=== PATIENT | male | born 1945 | race Caucasian/White ===

== ENCOUNTER 2018-08-14 09:49 | Observation (INO) ==
[2018-08-14 10:39] LABS: Basophils # 0.1 K/mcL (0.0-0.2); Basophils % 0.8 %; Eosinophils # 0.2 K/mcL (0.0-0.6); Eosinophils % 2.9 %; Hemoglobin 13.6 g/dL (12.9-16.9); Immature Granulocytes % 0.4 % (0-4); Lymphocytes # 1.2 K/mcL (0.6-4.6); Lymphocytes % 15.6 %; Mean Corpuscular HGB Conc 33.2 g/dL (31.6-35.5); Mean Corpuscular Volume 90.3 fL (83.0-100.0); Mean Platelet Volume 8.9 fL (9.4-12.4); Monocytes # 0.5 K/mcL (0.0-1.3); Monocytes % 6.3 %; Neutrophils # 5.7 K/mcL (1.6-8.9); Platelet Count 197 K/mcL (140-400); Red Blood Count 4.54 M/mcL (4.19-5.50); Red Cell Distribution Width 14.1 % (11.5-14.5)
--- NOTE | 2018-08-14 10:47 | Emergency Department Note ---
Disposition Clinical Impression: Acute chest pain Disposition: Admitted As Inpatient Condition: Fair Time of Disposition: 11:00 General Adult HPI - General Chief complaint: ED Extremity Problem,Nontraumatic Stated complaint: CP/DVT? Time Seen by Provider: 08/14/18 10:01 Source: patient Limitations: no limitations Nursing Notes Reviewed: Yes Vital Signs Reviewed: Yes - History of Present Illness HPI Narrative: 73-year-old male presents emergency Department with concerns of left lower extremity swelling and pain. Patient states symptoms have been present over the past 24-48 hours. He recalls reports having chest pain that is a dull ache in the left lower chest that does not radiate. He does not have associated diaphoresis or shortness of breath or palpitations. No history of cardiac disease in the past. 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 He states his Coumadin levels are very stable and has not had much difficulty controlling his INR. Patient denies recent trauma. No fevers, chills, nausea, vomiting, diarrhea, rash. Pain Scale: 2 - Related Data Home Medications Medication Instructions Recorded Confirmed Atorvastatin Calcium [Lipitor] 40 mg PO DAILY 12/17/15 08/14/18 Enalapril Maleate [Vasotec] 10 mg PO HS 12/17/15 08/14/18 Enalapril Maleate [Vasotec] 15 mg PO QAM 12/17/15 08/14/18 Ergocalciferol (VITAMIN D2) 50,000 unit PO 2XW 12/17/15 08/14/18 [Vitamin D2 (50,000 UNIT)] Fenofibrate Nanocrystallized 145 mg PO DAILY 12/17/15 08/14/18 [Tricor] Gabapentin [Neurontin] 600 mg PO HS 12/17/15 08/14/18 Lactobacillus Acidophilus 1 mg PO DAILY 12/17/15 08/14/18 [Acidophilus Probiotic] [place]-3/Dha/Epa/Fish Oil [Fish Oil 1,000 mg PO DAILY 12/17/15 08/14/18 Dr 500 mg Softgel] Pramoxine [Proctofoam] 1 appl RC QID 12/17/15 12/17/15 Psyllium Husk [Fiber] 1 tab PO DAILY 12/17/15 08/14/18 Sulfamethoxazole/Trimeth DS 1 each PO BID 12/17/15 12/17/15 [Bactrim Ds] Tizanidine HCl 4 mg PO Q8H PRN 12/17/15 08/14/18 Warfarin [Coumadin] 2.5 mg PO MOWEFR 12/17/15 08/14/18 Warfarin [Coumadin] 5 mg PO SUTUTHSA 12/17/15 08/14/18 amLODIPine [Norvasc] 5 mg PO DAILY 12/17/15 08/14/18 Carvedilol [Coreg] 25 mg PO BIDWM 08/14/18 08/14/18 OxyCODONE Immed Rel [Roxicodone 5 5 mg PO BID PRN 08/14/18 08/14/18 MG] hydroCHLOROthiazide 25 mg PO DAILY 08/14/18 08/14/18 [Hydrochlorothiazide] Allergies Allergy/AdvReac Type Severity Reaction Status Date / Time oxytetracycline Allergy See Verified 12/17/15 16:20 [From Terramycin] Comments Penicillins [PCN] Allergy See Verified 12/17/15 16:20 Comments tetracycline [Tetracycline] Allergy See Verified 12/17/15 16:20 Comments All systems ED: reviewed and negative except as stated. Review of Systems: As Per HPI Past Medical History - Past Medical History Attestation: Yes The following information was validated with the patient. Source: patient Medical history: Reports: arthritis, DVT, hyperlipidemia, hypertension, pulmonary embolus Surgical history: Reports: no surgical history Psychiatric history: Reports: no psych history - Social History Smoking Status: Never smoker Smokeless Tobacco Status: No Alcohol use: Reports: none Drug use: Reports: none Physical Exam General: Alert and in no acute distress Skin: Warm, dry, intact Head: Normocephalic and atraumatic Neck: Supple, trachea midline and no tenderness Cardiovascular: RRR, no murmur, normal perfusion Respiratory: CTAB, no wheezing, cough, or respiratory distress Musculoskeletal: Normal strength. Tenderness to palpation of the left posterior calf, +3 pitting edema in the bilateral lower extremities. GI: Soft, nontender, nondistended. Bowel sounds present Neuro: A&O to person, place, time and situation. No focal deficits noted on exam Psychiatric: cooperative and appropriate mood and affect. - General Limitations: no limitations General appearance: alert Course Vital Signs Temperature 97.9 F 08/14/18 09:50 Pulse Rate 64 08/14/18 09:50 Respiratory Rate 18 08/14/18 09:50 Blood Pressure 194/103 08/14/18 09:50 O2 Sat by Pulse Oximetry 96 08/14/18 09:50 Temperature 98.5 F 08/15/18 08:36 Pulse Rate 62 08/15/18 08:36 Respiratory Rate 16 08/15/18 08:36 Blood Pressure 172/64 08/15/18 08:36 O2 Sat by Pulse Oximetry 96 08/15/18 08:36 Oxygen Delivery Oxygen Delivery Room Air Medical Decision Making - MDM Narrative Medical decision making narrative: DT was negative in the left lower extremity however patient has significant left lower chest pain. He has multiple risk factors and will be admitted to the hospitalist for further care and evaluation. - Medical Records Medical records reviewed: Yes I reviewed the patient's medical records. - Lab Data Lab results reviewed: Yes I reviewed the patient's lab results. Result diagrams: 08/15/18 03:54 08/15/18 03:54 Lab Results 08/14/18 08/14/18 Range/Units 10:28 10:28 WBC 7.7 (4.3-11.1) K/mcL RBC 4.54 (4.19-5.50) M/mcL Hgb 13.6 (12.9-16.9) g/dL Hct 41.0 (37.5-50.1) % MCV 90.3 (83.0-100.0) fL MCH 30.0 (28.0-33.3) pg MCHC 33.2 (31.6-35.5) g/dL RDW 14.1 (11.5-14.5) % Plt Count 197 (140-400) K/mcL MPV 8.9 L (9.4-12.4) fL Immature Gran % 0.4 (0-4) % Seg Neutrophils % 74.0 % Lymphocytes % 15.6 % Monocytes % 6.3 % Eosinophils % 2.9 % Basophils % 0.8 % Neutrophils # 5.7 (1.6-8.9) K/mcL Lymphocytes # 1.2 (0.6-4.6) K/mcL Monocytes # 0.5 (0.0-1.3) K/mcL Eosinophils # 0.2 (0.0-0.6) K/mcL Basophils # 0.1 (0.0-0.2) K/mcL Sodium 139 (136-145) mEq/L Potassium 4.1 (3.5-5.1) mEq/L Chloride 107 (98-107) mEq/L Carbon Dioxide 24 (23-29) mEq/L BUN 18 (8-23) mg/dL Creatinine 1.17 (0.70-1.30) mg/dL Est GFR ( Amer) > 60 (> 60) Est GFR (Non-Af Amer) > 60 (> 60) BUN/Creatinine Ratio 15 (6-26) Glucose 99 (70-105) mg/dL Calculated Osmolality 290 (280-300) Calcium 9.5 (8.6-10.3) mg/dL Troponin I < 0.03 (< 0.04) ng/mL - Radiology Data Radiology results reviewed: Yes I reviewed the patient's radiology results. - EKG Data EKG #1 EKG attestation: Yes I reviewed and interpreted this EKG. EKG results narrative: Normal sinus rhythm with a rate of 75 with PACs and mild ST depression of lead V4, V5. No evidence of STEMI. QTC of 396, QRS of 99.
[2018-08-14] MEDS ORDERED: Nitroglycerin 0.4 MG TAB.SUBL SL PRN (10:52)
[2018-08-14] MEDS ORDERED: Aspirin 81 MG TAB.CHEW PO ONE (10:52)
[2018-08-14 11:01] LABS: BUN/Creatinine Ratio 15 (6-26); Blood Urea Nitrogen 18 mg/dL (8-23); Calcium 9.5 mg/dL (8.6-10.3); Carbon Dioxide 24 mEq/L (23-29); Chloride 107 mEq/L (98-107); Glucose 99 mg/dL (70-105); Osmolality,Calculated 290 (280-300); Potassium 4.1 mEq/L (3.5-5.1); Sodium 139 mEq/L (136-145); Troponin I < 0.03 ng/mL (< 0.04); eGFR For Non-African Americans > 60 (> 60)
[2018-08-14] MEDS ORDERED: Isovue-370 500 ML BOTTLE IVP ONE (11:13)
[2018-08-14] MEDS ORDERED: *HR* HYDROcodone/Acet 5/325 mg TABLET PO PRN (15:11)
[2018-08-14] MEDS ORDERED: Ondansetron ODT 4 MG TAB.RAPDIS SL PRN (15:11)
[2018-08-14] MEDS ORDERED: Acetaminophen 325 MG TABLET PO PRN (15:11)
[2018-08-14] MEDS ORDERED: Naloxone 0.4 MG/ML INJ IVP PRN (15:11)
--- NOTE | 2018-08-14 15:54 | Internal Med History&Physical ---
Date of Encounter: 08/14/18 Time of Encounter: 15:57 Internal Medicine - H&P: HPI Chief complaint: CP Admitted From: Emergency Dept Plans for Post Hospital Care: Home History of present illness: Mr. Glass is a 73 year old male past medical hx of DVT and hx of PE on coumadin HLD HTN artjhritis Has chronic lower extremity swelling noticed he has left lower extremity swelling and pain been going on for approximately 5 days. This a.m. at approximate 4 AM he got to the bathroom and did experience some dull left lower nonradiating chest pain denied any associated symptoms of shortness of breath nausea diaphoresis or palpitations. There were no aggravating or relieving factors. Pain continued until approximately 10 AM which resolved on its own. He originally presented to urgent care with concerns of left lower e xtremity swelling-concern for DVT since he does have a past history advised patient go to the ER for evaluation. In the ER patient underwent venous duplex which was negative for any DVT CTA chest was negative for PE chest x-ray no acute process EKG with PACs and some mild ST depression initial troponin was negative. He has been admitted for further workup and evaluation. Currently patient denies any chest pain disc voices concerns about his lower leg swelling. Discussed implant the patient verbalized understanding Past Med Surg Social Fam HX - Past Medical History Medical history: arthritis, DVT, hyperlipidemia, hypertension, pulmonary embolus Psychiatric history: no psych history - Past Surgical History Surgical History: no surgical history - Social History Smoking Status: Never smoker Smokeless Tobacco Status: No Alcohol use: none Drug use: none - Family History Mother Family Member Ethnicity: Non- Living Status: Internal Medicine - H&P: Meds Atorvastatin Calcium [Lipitor] 40 mg PO DAILY 12/17/15 [History] Enalapril Maleate [Vasotec] 10 mg PO HS 12/17/15 [History] Enalapril Maleate [Vasotec] 15 mg PO QAM 12/17/15 [History] Ergocalciferol (VITAMIN D2) [Vitamin D2 (50,000 UNIT)] 50,000 unit PO 2XW 12/17/15 [History] Fenofibrate Nanocrystallized [Tricor] 145 mg PO DAILY 12/17/15 [History] Gabapentin [Neurontin] 600 mg PO HS 12/17/15 [History] Lactobacillus Acidophilus [Acidophilus Probiotic] 1 mg PO DAILY 12/17/15 [History] [place]-3/Dha/Epa/Fish Oil [Fish Oil Dr 500 mg Softgel] 1,000 mg PO DAILY 12/17/15 [History] Pramoxine [Proctofoam] 1 appl RC QID 12/17/15 [History] Psyllium Husk [Fiber] 1 tab PO DAILY 12/17/15 [History] Sulfamethoxazole/Trimeth DS [Bactrim Ds] 1 each PO BID 12/17/15 [History] Tizanidine HCl 4 mg PO Q8H PRN 12/17/15 [History] Warfarin [Coumadin] 2.5 mg PO MOWEFR 12/17/15 [History] Warfarin [Coumadin] 5 mg PO SUTUTHSA 12/17/15 [History] amLODIPine [Norvasc] 5 mg PO DAILY 12/17/15 [History] Carvedilol [Coreg] 25 mg PO BIDWM 08/14/18 [History] OxyCODONE Immed Rel [Roxicodone 5 MG] 5 mg PO BID PRN 08/14/18 [History] hydroCHLOROthiazide [Hydrochlorothiazide] 25 mg PO DAILY 08/14/18 [History] Allergy/AdvReac Type Severity Reaction Status Date / Time oxytetracycline Allergy See Verified 12/17/15 16:20 [From Terramycin] Comments Penicillins [PCN] Allergy See Verified 12/17/15 16:20 Comments tetracycline [Tetracycline] Allergy See Verified 12/17/15 16:20 Comments All Systems PM: A 10-system review of systems was performed and is negative for pertinent findings except as documented above in the HPI. - Constitutional Constitutional: no chills, no fever(s), no night sweats - EENT Eyes: no change in vision, no discharge, no pain, no photophobia Ears: no ear discharge, no ear pain, no tinnitus Nose, mouth and throat: no dysphagia, no nasal discharge, no neck pain, no sore throat - Cardiovascular Cardiovascular ROS IM: edema, no chest pain, no diaphoresis, no dyspnea, no lightheadedness, no palpitations, no syncope - Respiratory Respiratory: no cough, no dyspnea, no wheezing, no excessive phlegm production - Gastrointestinal Gastrointestinal: no abdominal pain, no diarrhea, no hematemesis, no hematochezia, no melena, no nausea, no vomiting - Musculoskeletal Musculoskeletal ROS IM: no numbness, no tingling - Integumentary Integumentary IM: no rash, no unusual bruising - Neurological Neurological ROS: no confusion, no convulsions, no focal weakness, no numbness, no tingling, no tremor(s) - Hematologic/Lymphatic Hematologic/Lymphatic: no easy bruising - Constitutional Vitals: Temp Pulse Resp BP Pulse Ox 98.0 F 43 19 168/83 96 08/14/18 15:00 08/14/18 15:00 08/14/18 15:00 08/14/18 15:00 08/14/18 15:00 General appearance: Present: A&O X 3 Exam: . - Head Head exam: Present: atraumatic, normocephalic - Eye Eye exam: Present: PERRL, conjuntiva pink, sclera anicteric Pupils: Present: PERRL - Neck Neck exam general surgery: Present: supple, trachea midline. Absent: lymphadenopathy - Respiratory Respiratory exam: Present: CTAB. Absent: accessory muscle use, rales, rhonchi, wheezes - Cardiovascular Cardiovascular exam: Present: RRR, +S1, +S2. Absent: diastolic murmur, gallop, rubs, systolic murmur - GI/Abdominal GI/Abdominal exam: Present: normal bowel sounds, soft, no peritoneal signs. Absent: distended, tenderness - Extremities Exam Extremities exam: Present: pedal edema, warm, radial pulses palpable and symmetrical. Absent: calf tenderness, cyanotic Additional comments: +3 edema bilaterally - Neurological Exam Neurological exam: Present: CN II-XII intact, oriented X3, no focal deficits. Absent: pronater drift, facial droop, speech deficit - Skin Skin exam: Present: dry, intact Internal Med - H&P Results - Labs CBC & Chem 7: 08/14/18 10:28 08/14/18 10:28 Labs: Short CBC 08/14/18 Range/Units 10:28 WBC 7.7 (4.3-11.1) K/mcL Hgb 13.6 (12.9-16.9) g/dL Hct 41.0 (37.5-50.1) % Plt Count 197 (140-400) K/mcL Neutrophils # 5.7 (1.6-8.9) K/mcL BMP 08/14/18 10:28 Sodium 139 Potassium 4.1 Chloride 107 Carbon Dioxide 24 BUN 18 Creatinine 1.17 Glucose 99 Calcium 9.5 Cardiac Enzymes 08/14/18 Range/Units 10:28 Troponin I < 0.03 (< 0.04) ng/mL - EKG Data EKG shows normal: sinus rhythm - EKG Data EKG comments: 08/14/18 16:12 PACs with some slight ST depression - Impressions ITS Impressions Chest X-Ray 08/14/18 09:53 IMPRESSION: Cardiomegaly without acute cardiopulmonary process. D/ / 08/14/2018 11:37:55 Hesham Grant MD / ceferino Interpreting Provider: Hesham Grant MD Chest CTA 08/14/18 11:13 IMPRESSION: No evidence of pulmonary embolism or acute pulmonary abnormality. D/ / 08/14/2018 12:48:42 Makenzie Vick MD / ceferino Interpreting Provider: Makenzie Vick MD - Assessment and Plan (1) Acute chest pain Current Visit: Yes Status: Acute Assessment and plan: Patient states he experienced dull 4 out of 10 chest pain left lower chest nonr adiating after getting up and going to the bathroom this morning. Pain continued until approximately 10 AM when it resolves was found. There were no aggravating or relieving factors. He does have a history of hypertension hyperlipidemia morbid obesity and family history. 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 at [facility] we will obtain records Patient has not had any cardiac testing in the past-pending test results we will consider cardiac nuclear stress test Consult cardiology if warranted (2) Lymphedema Current Visit: Yes Status: Acute Assessment and plan: Per history of chronic lymphedema r leg noticed that his left leg is starting to swell as well concerned for DVT since he does have past history DVT (3) DVT prophylaxis Current Visit: Yes Status: Acute Assessment and plan: On Coumadin (4) Anticoagulated on Coumadin Current Visit: No Status: Chronic Assessment and plan: Patient has a past history of PEs and is on lifelong anticoagulation-pharmacy to dose (5) CKD (chronic kidney disease) stage 3, GFR 30-59 ml/min Current Visit: No Status: Chronic Assessment and plan: History CKD stage III currently creatinine stable continue to monitor Avoid nephrotoxins (6) Hypertension Current Visit: No Status: Chronic Assessment and plan: History of hypertension follows with Dr. 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
[2018-08-14 16:41] LABS: INR 1.9; Prothrombin Time 21.8 Seconds (9.4-12.1)
[2018-08-14] MEDS ORDERED: *HR* OxyCODONE Immed Rel 5 MG TABLET PO PRN (17:24)
[2018-08-14] MEDS ORDERED: tiZANidine 4 MG TABLET PO PRN (17:24)
[2018-08-14] MEDS ORDERED: Warfarin perPT PO PRN (18:00)
[2018-08-14] MEDS ORDERED: *HR* Warfarin 5 MG TABLET PO ONE (18:15)
[2018-08-14] MEDS ORDERED: NON-FORMULARY MEDICATION 1 EACH EACH (Enalapril Maleate [Vasotec] 10 MG) PO SCH (21:00)
[2018-08-14] MEDS: Gabapentin 300 MG CAPSULE PO SCH (21:09)
[2018-08-15 04:19] LABS: Basophils # 0.1 K/mcL (0.0-0.2); Basophils % 0.7 %; Eosinophils # 0.2 K/mcL (0.0-0.6); Eosinophils % 2.8 %; Hematocrit 38.1 % (37.5-50.1); Hemoglobin 12.5 g/dL (12.9-16.9); Immature Granulocytes % 0.3 % (0-4); Lymphocytes # 1.2 K/mcL (0.6-4.6); Lymphocytes % 17.1 %; Mean Corpuscular HGB Conc 32.8 g/dL (31.6-35.5); Mean Corpuscular Hemoglobin 29.8 pg (28.0-33.3); Mean Corpuscular Volume 90.7 fL (83.0-100.0); Mean Platelet Volume 9.1 fL (9.4-12.4); Monocytes # 0.5 K/mcL (0.0-1.3); Monocytes % 7.5 %; Neutrophils # 5.2 K/mcL (1.6-8.9); Platelet Count 167 K/mcL (140-400); Red Cell Distribution Width 14.3 % (11.5-14.5); Segmented Neutrophils % 71.6 %
[2018-08-15 04:26] LABS: INR 2.1; Prothrombin Time 23.3 Seconds (9.4-12.1)
[2018-08-15 04:37] LABS: BUN/Creatinine Ratio 17 (6-26); Blood Urea Nitrogen 18 mg/dL (8-23); Calcium 8.9 mg/dL (8.6-10.3); Carbon Dioxide 25 mEq/L (23-29); Chloride 107 mEq/L (98-107); Chol/HDL Ratio 4.9 (0-4.9); Cholesterol 131 mg/dL (< 200); Glucose 94 mg/dL (70-105); HDL Cholesterol 27 mg/dL (40-59); LDL Cholesterol,Calculated 85 mg/dL (0-99); Magnesium 1.8 mg/dL (1.6-2.6); Osmolality,Calculated 296 (280-300); Potassium 4.1 mEq/L (3.5-5.1); Sodium 142 mEq/L (136-145); Triglycerides 93 mg/dL (< 150); eGFR For Non-African Americans > 60 (> 60)
[2018-08-15] MEDS: Fenofibrate 54 MG TABLET PO SCH (08:33)
[2018-08-15] MEDS: Lactobacillus 1 EACH CAP.SPRINK PO SCH (08:33)
[2018-08-15] MEDS: Lisinopril 20 MG TABLET PO SCH (08:33)
[2018-08-15] MEDS: Psyllium 1 PACKET POWD.PACK PO SCH (08:34)
[2018-08-15] MEDS: Aspirin 81 MG TAB.CHEW PO SCH (08:34)
[2018-08-15] MEDS: amLODIPine 5 MG TABLET PO SCH (08:34)
[2018-08-15] MEDS: hydroCHLOROthiazide 25 MG TABLET PO SCH (08:34)
[2018-08-15] MEDS ORDERED: NON-FORMULARY MEDICATION 1 EACH EACH (Omega-3/Dha/Epa/Fish Oil [Fish Oil Dr 500 Mg Softgel PO SCH (09:00)
[2018-08-15] MEDS ORDERED: ENALAPRIL MALEATE PO SCH (09:00)
[2018-08-15] MEDS ORDERED: NON-FORMULARY MEDICATION 1 EACH EACH (Atorvastatin Calcium [Lipitor] 40 MG) PO SCH (09:00)
--- NOTE | 2018-08-15 11:24 | Internal Med Progress Note ---
Hospitalist Progress Note - Encounter Date of Encounter: 08/15/18 Time of Encounter: 11:22 - Subjective Interval History: Patient was seen and examined at bedside. Currently he denies any chest pain. troponins are negative awaiting echo results as well as repeat EKG. Patient will undergo cardiac stress test in the a.m. discussed reimplant the patient who verbalized understanding - Exam Vitals: Temp Pulse Resp BP Pulse Ox 98.5 F 62 16 172/64 96 08/15/18 08:36 08/15/18 08:36 08/15/18 08:36 08/15/18 08:36 08/15/18 08:36 Exam: Skin: Free of rash and discoloration. Eyes: Sclera is white. There is no discharge from eyes. ENMT: Oral/pharyngeal mucosa is normal in appearance. There is no discharge from nose or ears. Respiratory: Normal breath sounds with no crackles and wheezes bilaterally. CV: Heart is regular with no gallop or murmur. GI: Abdomen is flat and soft with no palpable mass or visceromegaly. : There is no tenderness in patient's flanks bilaterally. Neuro exam: He has good strength in upper and lower extremities. He has normal eye movements. Psychiatric: He has normal affect. His thought process is appropriate to the situation. . - Assessment and Plan (1) Acute chest pain Current Visit: Yes Status: Acute Assessment and Plan: Patient states he experienced dull 4 out of 10 chest pain left lower chest nonradiating after getting up and going to the bathroom this morning. Pain continued until approximately 10 AM when it resolves was found. There were no aggravating or relieving factors. He does have a history of hypertension hyperlipidemia morbid obesity and family history. 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 (2) Lymphedema Current Visit: Yes Status: Acute Assessment and Plan: Per history of chronic lymphedema r leg noticed that his left leg is starting to swell as well concerned for DVT since he does have past history DVT (3) DVT prophylaxis Current Visit: Yes Status: Acute Assessment and Plan: On Coumadin (4) Anticoagulated on Coumadin Current Visit: No Status: Chronic Assessment and Plan: Patient has a past history of PEs and is on lifelong anticoagulation-pharmacy to dose (5) CKD (chronic kidney disease) stage 3, GFR 30-59 ml/min Current Visit: No Status: Chronic Assessment and Plan: History CKD stage III currently creatinine stable continue to monitor Avoid nephrotoxins (6) Hypertension Current Visit: No Status: Chronic Assessment and Plan: History of hypertension follows with Dr. 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 year he has no deficits continue with aspirin and statin (8) Hx pulmonary embolism Current Visit: No Status: Chronic Assessment and Plan: History of pulmonary embolism on chronic anticoagulant therapy we will continue pharmacy to dose - Time Spent with Patient Total time spent is greater than 50% in coordination of care (as documented) at patient's floor/unit and/or counseling patient: Internal Medicine: Result - Labs CBC & Chem 7: 08/15/18 03:54 08/15/18 03:54 Labs: Short CBC 08/15/18 Range/Units 03:54 WBC 7.2 (4.3-11.1) K/mcL Hgb 12.5 L (12.9-16.9) g/dL Hct 38.1 (37.5-50.1) % Plt Count 167 (140-400) K/mcL Neutrophils # 5.2 (1.6-8.9) K/mcL BMP 08/15/18 03:54 Sodium 142 Potassium 4.1 Chloride 107 Carbon Dioxide 25 BUN 18 Creatinine 1.09 Glucose 94 Calcium 8.9 Cardiac Enzymes 08/14/18 08/14/18 08/15/18 Range/Units 15:15 21:56 03:54 Troponin I < 0.03 < 0.03 < 0.03 (< 0.04) ng/mL - ABG Interpretation ABG results: PT/INR, D-dimer PT 23.3 Seconds (9.4-12.1) H 08/15/18 03:54 - Impressions Impressions Chest X-Ray 08/14/18 09:53 IMPRESSION: Cardiomegaly without acute cardiopulmonary process. D/ / 08/14/2018 11:37:55 Hesham Grant MD / ceferino Interpreting Provider: Hesham Grant MD Chest CTA 08/14/18 11:13 IMPRESSION: No evidence of pulmonary embolism or acute pulmonary abnormality. D/ / 08/14/2018 12:48:42 Makenzie Vick MD / ceferino Interpreting Provider: Makenzie Vick MD Consult Discharge Plan - Plan Referrals: Tato Gonzalez MD [Primary Care Provider] - (APPOINTMENT HAS BEEN REQUESTED.) (6) Hypertension Qualifiers: Hypertension type: essential hypertension Qualified Code(s): I10 - Essential (primary) hypertension
[2018-08-15] MEDS ORDERED: *HR* Warfarin 2.5 MG TABLET PO ONE (18:00)
[2018-08-15] MEDS: Gabapentin 300 MG CAPSULE PO SCH (21:04)
[2018-08-16 01:53] LABS: Prothrombin Time 22.8 Seconds (9.4-12.1)
--- NOTE | 2018-08-16 06:27 | Electrocardiograph Report ---
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
[2018-08-16] MEDS ORDERED: Regadenoson 0.4 MG/5 ML SYRINGE IVP ONE (06:37)
[2018-08-16 12:15] VITALS: BP 174/96
[2018-08-16] MEDS: Aspirin 81 MG TAB.CHEW PO SCH (12:30)
[2018-08-16] MEDS: Psyllium 1 PACKET POWD.PACK PO SCH (12:30)
[2018-08-16] MEDS: Fenofibrate 54 MG TABLET PO SCH (12:30)
[2018-08-16] MEDS: hydroCHLOROthiazide 25 MG TABLET PO SCH (12:30)
[2018-08-16] MEDS: Lisinopril 20 MG TABLET PO SCH (12:30)
[2018-08-16] MEDS: Lactobacillus 1 EACH CAP.SPRINK PO SCH (12:30)
[2018-08-16] MEDS: amLODIPine 5 MG TABLET PO SCH (12:30)
--- NOTE | 2018-08-16 15:51 | Discharge Summary ---
- NOTES TO OUTPATIENT PROVIDER Notes to Outpatient Provider: Presented with chest pain troponins were negative 3 underwent stress test negative for ischemia or infarct. Concern for DVT in left leg which was negative continue with Coumadin follow-up with primary care provider Orders not resulted at time of discharge: Pending orders 08/16/18 06:00 NM jaki perf SPECT multi [NM] Routine 08/17/18 04:00 PT/INR [Prothrombin Time INR] [COAG] AM 0400 08/18/18 04:00 PT/INR [Prothrombin Time INR] [COAG] AM 0400 08/19/18 04:00 PT/INR [Prothrombin Time INR] [COAG] AM 040 Date of Encounter: 08/16/18 Time of Encounter: 15:45 - Discharge Diagnosis (1) Acute chest pain Priority: Primary Status: Acute (2) Lymphedema Priority: Secondary Status: Acute (3) Anticoagulated on Coumadin Priority: Secondary Status: Chronic (4) CKD (chronic kidney disease) stage 3, GFR 30-59 ml/min Priority: Secondary Status: Chronic (5) Hypertension Priority: Secondary Status: Chronic Qualifiers: Hypertension type: essential hypertension Qualified Code(s): I10 - Essential (primary) hypertension (6) History of CVA (cerebrovascular accident) Priority: Secondary Status: Chronic (7) Hx pulmonary embolism Priority: Secondary Status: Chronic Hospital course: Mr. Glass is a 73 year old male past medical history of DVT history of PE on Coumadin hyperlipidemia hypertension arthritis. Patient has a history of chronic lower extremity swelling however he has a his left lower extremity swel ling more than his right which had been going on for approximately 5 days. He also did experience some midsternal long-range chest pain with some shortness of breath and palpitations which were brief and resolved on their own. Venous duplex was negative for any DVT CTA was completely was negative for any PE chest x-ray with no acute process EKG with PACs and some mild ST depression troponins were negative 3. Patient did undergo cardiac stress test which was negative for any ischemia or infarct. 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 Currently patient is chest pain-free and hemodynamically stable ready for discharge. - Time Spent with Patient Total time spent providing and/or coordinating discharge services: - Discharge Medications Prescriptions: New Aspirin 81 mg PO DAILY tab.chew Continued Fenofibrate Nanocrystallized [Tricor] 145 mg PO DAILY Psyllium Husk [Fiber] 2 cap PO BID Tizanidine HCl 4 mg PO HS Warfarin [Coumadin] 5 mg PO SUTUTHSA amLODIPine [Norvasc] 5 mg PO DAILY Carvedilol [Coreg] 25 mg PO BIDWM OxyCODONE Immed Rel [Roxicodone 5 MG] 5 mg PO BID PRN PRN Reason: Pain hydroCHLOROthiazide [Hydrochlorothiazide] 25 mg PO DAILY Alfuzosin HCl [Uroxatral] 10 mg PO DAILY Atorvastatin [Lipitor] 40 mg PO DAILY Enalapril Maleate [Vasotec] 20 mg PO BID Lactobacillus Combination No.4 [Probiotic] 1 cap PO DAILY [place]-3/Dha/Epa/Fish Oil [Fish Oil 1,000 mg Softgel] 1 cap PO TID Warfarin [Coumadin] 2.5 mg PO MOWEFR No Action Pramoxine [Proctofoam] 1 appl RC QID Ergocalciferol (VITAMIN D2) [Vitamin D2] 50,000 unit PO FR Hydrocortisone/Pramoxine [Hydrocortisone-Pramoxine Cream] 1 appl RC DAILY Sulfamethoxazole/Trimethoprim [Sulfamethoxazole-Tmp Ss Tablet] 1 tab PO DAILY Non-Formulary Medication 1 cap PO DAILY Home Medications: Fenofibrate Nanocrystallized [Tricor] 145 mg PO DAILY 12/17/15 [History] Pramoxine [Proctofoam] 1 appl RC QID 12/17/15 [History] Psyllium Husk [Fiber] 2 cap PO BID 12/17/15 [History] Tizanidine HCl 4 mg PO HS 12/17/15 [History] Warfarin [Coumadin] 5 mg PO SUTUTHSA 12/17/15 [History] amLODIPine [Norvasc] 5 mg PO DAILY 12/17/15 [History] Carvedilol [Coreg] 25 mg PO BIDWM 08/14/18 [History] OxyCODONE Immed Rel [Roxicodone 5 MG] 5 mg PO BID PRN 08/14/18 [History] hydroCHLOROthiazide [Hydrochlorothiazide] 25 mg PO DAILY 08/14/18 [History] Alfuzosin HCl [Uroxatral] 10 mg PO DAILY 08/16/18 [History] Aspirin 81 mg PO DAILY tab.chew 08/16/18 [Rx] Atorvastatin [Lipitor] 40 mg PO DAILY 08/16/18 [History] Enalapril Maleate [Vasotec] 20 mg PO BID 08/16/18 [History] Ergocalciferol (VITAMIN D2) [Vitamin D2] 50,000 unit PO FR 08/16/18 [History] Hydrocortisone/Pramoxine [Hydrocortisone-Pramoxine Cream] 1 appl RC DAILY 08/16/18 [History] Lactobacillus Combination No.4 [Probiotic] 1 cap PO DAILY 08/16/18 [History] Non-Formulary Medication 1 cap PO DAILY 08/16/18 [History] [place]-3/Dha/Epa/Fish Oil [Fish Oil 1,000 mg Softgel] 1 cap PO TID 08/16/18 [History] Sulfamethoxazole/Trimethoprim [Sulfamethoxazole-Tmp Ss Tablet] 1 tab PO DAILY 08/16/18 [History] Warfarin [Coumadin] 2.5 mg PO MOWEFR 08/16/18 [History] Allergies/Adverse Reactions: Allergy/AdvReac Type Severity Reaction Status Date / Time oxytetracycline Allergy See Verified 12/17/15 16:20 [From Terramycin] Comments Penicillins [PCN] Allergy See Verified 12/17/15 16:20 Comments tetracycline [Tetracycline] Allergy See Verified 12/17/15 16:20 Comments Date of admission: 08/14/18 13:38 Primary care physician: Tato Gonzalez MD Discharging clinician: Jazzy Stanley Anticipated date of discharge: 08/16/18 - Constitutional Vitals: Temp Pulse Resp BP Pulse Ox 98.4 F 59 15 174/96 94 08/16/18 12:13 08/16/18 12:13 08/16/18 12:13 08/16/18 12:13 08/16/18 12:13 General appearance: Present: A&O X 3 Exam: Skin: Free of rash and discoloration. Eyes: Sclera is white. There is no discharge from eyes. ENMT: Oral/pharyngeal mucosa is normal in appearance. There is no discharge from nose or ears. Respiratory: Normal breath sounds with no crackles and wheezes bilaterally. CV: Heart is regular with no gallop or murmur. GI: Abdomen is flat and soft with no palpable mass or visceromegaly. : There is no tenderness in patient's flanks bilaterally. Neuro exam: He has good strength in upper and lower extremities. He has normal eye movements. Psychiatric: He has normal affect. His thought process is appropriate to the situation. - Patient Status Disposition: Home, Self-Care Condition: Fair Functional capacity at discharge: independent ambulation Overall status at discharge: patient is back to baseline - Discharge Instructions Instructions: Chest Pain (DC) Follow Up With: Tato Gonzalez MD [Primary Care Provider] - 08/22/18 10:00 am () - Diet and Activity Activity: increase activity as tolerated Diet: advance to your usual diet
[2018-08-16] MEDS ORDERED: *HR* Warfarin 5 MG TABLET PO ONE (18:00)
--- NOTE | 2018-08-16 23:02 | Electrocardiograph Report ---
[address] [address] Test Date: 2018-08-15 Pat Name: Tato Glass Department: [id number] Room: 3B Gender: M [employer]: Robert : 1945 Requested By: Jazzy Stanley Order Number: [id number] Reading MD: Delmis Bonilla Measurements Intervals [place] Rate: 48 P: 28 [place]: 209 QRS: 39 QRSD: 105 T: 57 QT: 435 QTc: 401 Interpretive Statements SINUS BRADYCARDIA WITH OCCASIONAL SUPRAVENTRICULAR PREMATURE COMPLEXES Electronically Signed On 08-16-2018 23:00:35 EDT by Delmis Bonilla
== END 2018-08-16 16:51 | disposition home or self-care (01) ==
LOC: 3BNU 09:49 → EMEROOARM 09:49 → 3BNU 14:10
PROVIDERS: ADMIT Internal Medicine Nephrology; ATTEND Internal Medicine Nephrology

== ENCOUNTER 2019-07-17 15:40 | Inpatient (IN) ==
[2019-07-17] MEDS ORDERED: Piperacillin/Tazobactam 3.375 GM in Water for inj. (sterile) 20 ML IVP ONE (15:54)
[2019-07-17 16:27] LABS: Basophils # 0.1 K/mcL (0.0-0.2); Basophils % 0.8 %; Eosinophils # 0.3 K/mcL (0.0-0.6); Eosinophils % 4.2 %; Hematocrit 37.7 % (37.5-50.1); Immature Granulocytes % 0.3 % (0-4); Lymphocytes # 0.9 K/mcL (0.6-4.6); Lymphocytes % 14.3 %; Mean Corpuscular HGB Conc 31.8 g/dL (31.6-35.5); Mean Corpuscular Hemoglobin 27.9 pg (28.0-33.3); Mean Corpuscular Volume 87.7 fL (83.0-100.0); Monocytes # 0.5 K/mcL (0.0-1.3); Monocytes % 7.9 %; Neutrophils # 4.3 K/mcL (1.6-8.9); Platelet Count 197 K/mcL (140-400); Segmented Neutrophils % 72.5 %; White Blood Count 5.9 K/mcL (4.3-11.1)
[2019-07-17 16:48] LABS: BUN/Creatinine Ratio 15 (6-26); Blood Urea Nitrogen 20 mg/dL (8-23); C-Reactive Protein 18 mg/L (Less than 10); Calcium 8.9 mg/dL (8.6-10.3); Carbon Dioxide 24 mEq/L (23-29); Chloride 109 mEq/L (98-107); Glucose 94 mg/dL (70-105); Osmolality,Calculated 292 (280-300); Potassium 4.3 mEq/L (3.5-5.1); Sodium 140 mEq/L (136-145); eGFR For African Americans > 60 (> 60); eGFR For Non-African Americans 52 (> 60)
[2019-07-17 16:49] LABS: Troponin I < 0.03 ng/mL (< 0.04)
[2019-07-17] MEDS ORDERED: Furosemide 20 MG/2 ML VIAL IVP ONE (18:45)
[2019-07-17] MEDS ORDERED: *HR* HYDROcodone/Acet 5/325 mg TABLET PO PRN (20:21)
[2019-07-17] MEDS ORDERED: Naloxone 0.4 MG/ML INJ IVP PRN (20:21)
[2019-07-17] MEDS ORDERED: *HR* OxyCODONE Immed Rel 5 MG TABLET PO PRN (20:21)
[2019-07-17] MEDS ORDERED: Ondansetron 4 MG/2 ML VIAL IVP PRN (20:21)
[2019-07-17] MEDS ORDERED: Acetaminophen 325 MG TABLET PO PRN (20:21)
[2019-07-17 20:46] LABS: INR 2.6; Prothrombin Time 29.6 Seconds (9.4-12.1)
[2019-07-17] MEDS ORDERED: *HR* Warfarin 2.5 MG TABLET PO ONE (21:15)
[2019-07-17] MEDS: Furosemide 40 MG/4 ML VIAL IVP SCH (22:25)
[2019-07-17] MEDS: tiZANidine 4 MG TABLET PO SCH (22:26)
[2019-07-17] MEDS: hydrALAZINE 25 MG TABLET PO SCH (22:26)
[2019-07-17] MEDS: lisinopriL 20 MG TABLET PO SCH (22:26)
[2019-07-18 03:11] LABS: Basophils % 0.5 %; Eosinophils # 0.2 K/mcL (0.0-0.6); Eosinophils % 2.8 %; Hematocrit 39.1 % (37.5-50.1); Hemoglobin 12.3 g/dL (12.9-16.9); Immature Granulocytes % 0.4 % (0-4); Lymphocytes % 11.8 %; Mean Corpuscular HGB Conc 31.5 g/dL (31.6-35.5); Mean Corpuscular Hemoglobin 27.6 pg (28.0-33.3); Mean Corpuscular Volume 87.7 fL (83.0-100.0); Mean Platelet Volume 9.8 fL (9.4-12.4); Monocytes # 0.6 K/mcL (0.0-1.3); Monocytes % 7.8 %; Neutrophils # 6.3 K/mcL (1.6-8.9); Platelet Count 229 K/mcL (140-400); Red Blood Count 4.46 M/mcL (4.19-5.50); Segmented Neutrophils % 76.7 %; White Blood Count 8.2 K/mcL (4.3-11.1)
[2019-07-18 03:24] LABS: INR 2.8
[2019-07-18 03:39] LABS: Alanine Aminotransferase 12 Units/L (7-52); Albumin/Globulin Ratio 1.9 (1.1-2.2); Alkaline Phosphatase 48 Units/L (34-104); Aspartate Amino Transferase 17 Units/L (13-39); BUN/Creatinine Ratio 15 (6-26); Bilirubin,Total 0.7 mg/dL (0.3-1.0); Blood Urea Nitrogen 19 mg/dL (8-23); Calcium 8.9 mg/dL (8.6-10.3); Carbon Dioxide 23 mEq/L (23-29); Chloride 109 mEq/L (98-107); Chol/HDL Ratio 4.1 (0-4.9); Cholesterol 114 mg/dL (< 200); Globulin 2.1 g/dL (2.4-3.5); Glucose 80 mg/dL (70-105); HDL Cholesterol 28 mg/dL (40-59); LDL Cholesterol,Calculated 68 mg/dL (0-99); Magnesium 1.7 mg/dL (1.6-2.6); Osmolality,Calculated 293 (280-300); Potassium 3.8 mEq/L (3.5-5.1); Sodium 141 mEq/L (136-145); Total Protein 6.1 g/dL (6.4-8.9); Triglycerides 88 mg/dL (< 150); Troponin I < 0.03 ng/mL (< 0.04); eGFR For African Americans > 60 (> 60); eGFR For Non-African Americans 55 (> 60)
[2019-07-18 06:47] LABS: Estimated Average Glucose 114 mg/dl
[2019-07-18] MEDS: lisinopriL 20 MG TABLET PO SCH ×2 (08:04→20:11)
[2019-07-18] MEDS: tiZANidine 4 MG TABLET PO SCH ×2 (08:04→20:12)
[2019-07-18] MEDS: hydroCHLOROthiazide 25 MG TABLET PO SCH (08:04)
[2019-07-18] MEDS: carvediloL 25 MG TABLET PO SCH ×2 (08:05→16:32)
[2019-07-18] MEDS: hydrALAZINE 25 MG TABLET PO SCH ×2 (08:05→16:32)
[2019-07-18] MEDS: Furosemide 40 MG/4 ML VIAL IVP SCH ×2 (08:05→20:10)
[2019-07-18] MEDS: Piperacillin/Tazobactam 3.375 GM in 0.9 % Sodium Chloride Mini Bag 100 ML IVPB SCH ×2 (11:29→16:33)
[2019-07-18] MEDS: amLODIPine 5 MG TABLET PO SCH (11:29)
[2019-07-18] MEDS ORDERED: *HR* Warfarin 5 MG TABLET PO ONE (18:00)
[2019-07-18] MEDS ORDERED: Warfarin perPT PO PRN (18:00)
[2019-07-19] MEDS: Piperacillin/Tazobactam 3.375 GM in 0.9 % Sodium Chloride Mini Bag 100 ML IVPB SCH ×2 (00:06→07:31)
[2019-07-19] MEDS: hydrALAZINE 25 MG TABLET PO SCH ×2 (00:07→07:25)
[2019-07-19] MEDS: amLODIPine 5 MG TABLET PO SCH (07:24)
[2019-07-19] MEDS: lisinopriL 20 MG TABLET PO SCH (07:25)
[2019-07-19] MEDS: tiZANidine 4 MG TABLET PO SCH (07:25)
[2019-07-19] MEDS: carvediloL 25 MG TABLET PO SCH (07:26)
[2019-07-19] MEDS: hydroCHLOROthiazide 25 MG TABLET PO SCH (07:26)
[2019-07-19] MEDS: Furosemide 40 MG/4 ML VIAL IVP SCH (07:27)
[2019-07-19 08:17] LABS: Basophils # 0.1 K/mcL (0.0-0.2); Basophils % 0.6 %; Eosinophils # 0.3 K/mcL (0.0-0.6); Eosinophils % 3.1 %; Hemoglobin 14.1 g/dL (12.9-16.9); Immature Granulocytes % 0.4 % (0-4); Lymphocytes # 1.1 K/mcL (0.6-4.6); Lymphocytes % 10.9 %; Mean Corpuscular Hemoglobin 27.8 pg (28.0-33.3); Mean Corpuscular Volume 86.8 fL (83.0-100.0); Mean Platelet Volume 9.5 fL (9.4-12.4); Monocytes # 0.8 K/mcL (0.0-1.3); Monocytes % 7.7 %; Neutrophils # 7.7 K/mcL (1.6-8.9); Platelet Count 276 K/mcL (140-400); Red Blood Count 5.07 M/mcL (4.19-5.50); Red Cell Distribution Width 15.2 % (11.5-14.5); Segmented Neutrophils % 77.3 %
[2019-07-19 08:22] LABS: INR 3.5; Prothrombin Time 40.3 Seconds (9.4-12.1)
[2019-07-19 08:39] LABS: Calcium 10.2 mg/dL (8.6-10.3); Magnesium 1.8 mg/dL (1.6-2.6); Phosphorous 3.5 mg/dL (2.7-4.5); Potassium 3.5 mEq/L (3.5-5.1)
[2019-07-19] MEDS ORDERED: Furosemide 40 MG/4 ML VIAL IVP SCH (09:00)
[2019-07-19] MEDS ORDERED: Fenofibrate 54 MG TABLET PO SCH (09:00)
[2019-07-19 10:47] VITALS: BP 128/75
== END 2019-07-19 12:09 | disposition home health service (06) | DRG 603 ==
LOC: EMEROOARM 15:40 → 3BNU 15:40 → SUATTDRO 19:17 → 3BNU 19:55
PROVIDERS: ADMIT Internal Medicine; ATTEND Internal Medicine

== ENCOUNTER 2021-02-20 15:32 | Inpatient (IN) ==
[2021-02-20 16:15] LABS: Basophils # 0.1 K/mcL (0.0-0.2); Basophils % 0.3 %; Eosinophils # 0.1 K/mcL (0.0-0.6); Eosinophils % 0.9 %; Hematocrit 38.3 % (37.5-50.1); Hemoglobin 12.6 g/dL (12.9-16.9); Lymphocytes % 6.4 %; Mean Corpuscular HGB Conc 32.9 g/dL (31.6-35.5); Mean Corpuscular Hemoglobin 27.6 pg (28.0-33.3); Mean Platelet Volume 9.1 fL (9.4-12.4); Monocytes # 1.1 K/mcL (0.0-1.3); Monocytes % 7.2 %; Neutrophils # 12.5 K/mcL (1.6-8.9); Platelet Count 460 K/mcL (140-400); Red Blood Count 4.56 M/mcL (4.19-5.50); Red Cell Distribution Width 15.2 % (11.5-14.5); Segmented Neutrophils % 84.2 %; White Blood Count 14.9 K/mcL (4.3-11.1)
[2021-02-20 16:34] LABS: Calcium 9.2 mg/dL (8.6-10.3); Potassium 4.2 mEq/L (3.5-5.1)
[2021-02-20] MEDS ORDERED: Vancomycin 2,000 MG/520 ML IV.SOLN IVPB ONE (16:38)
[2021-02-20 17:05] LABS: Albumin 3.6 g/dL (3.5-5.7); Bilirubin,Direct 0.2 mg/dL (0.0-0.2); Bilirubin,Indirect 0.6 mg/dL (0.0-1.0); Bilirubin,Total 0.8 mg/dL (0.3-1.0); Globulin 3.5 g/dL (2.4-3.5); INR 6.5; Prothrombin Time 71.9 Seconds (9.4-12.1); Total Protein 7.1 g/dL (6.4-8.9)
[2021-02-20 17:17] LABS: Activated Partial Thrombo Time 122.7 Seconds (26.0-36.0)
[2021-02-20] MEDS ORDERED: *HR* HYDROmorphone (PF) 1 MG/ML SYRINGE IVP ONE (17:40)
[2021-02-20] MEDS ORDERED: Ondansetron 4 MG/2 ML VIAL IVP PRN (18:15)
[2021-02-20] MEDS ORDERED: Naloxone 0.4 MG/ML INJ IVP PRN (18:15)
[2021-02-20] MEDS ORDERED: 0.9 % Sodium Chloride 500 ML IVC ONE (18:18)
[2021-02-20] MEDS ORDERED: Ringers Solution, Lactated 1,000 ML IVC ONE (18:20)
[2021-02-20] MEDS ORDERED: *HR* OxyCODONE Immed Rel 5 MG TABLET PO PRN (18:20)
[2021-02-20 20:06] LABS: Bilirubin,Urine Negative (Negative); Blood,Urine Negative (Negative); Clarity,Urine Clear (Clear); Color,Urine Light-Yellow (Yellow); Glucose,Urine (UA) Normal (Normal); Ketones,Urine Negative (Negative); Leukocyte Esterase,Urine Negative (Negative); Nitrite,Urine Negative (Negative); PH,Urine 5.5 pH Units (5.0-8.0); Protein,Urine Negative (Neg-Trace); Specific Gravity,Urine 1.013 (1.010-1.025); Urobilinogen,Urine Normal (Normal)
[2021-02-20] MEDS: *HR* OxyCODONE Immed Rel 5 MG TABLET PO PRN (20:14)
[2021-02-20] MEDS: levoFLOXacin 750 MG/150 ML 750 MG/150 ML BAG IVPB SCH (20:15)
[2021-02-21 06:14] LABS: Hematocrit 34.3 % (37.5-50.1); Hemoglobin 11.3 g/dL (12.9-16.9); Mean Corpuscular HGB Conc 32.9 g/dL (31.6-35.5); Mean Corpuscular Hemoglobin 28.1 pg (28.0-33.3); Mean Corpuscular Volume 85.3 fL (83.0-100.0); Mean Platelet Volume 9.3 fL (9.4-12.4); Platelet Count 426 K/mcL (140-400); Red Blood Count 4.02 M/mcL (4.19-5.50); Red Cell Distribution Width 15.2 % (11.5-14.5); White Blood Count 13.3 K/mcL (4.3-11.1)
[2021-02-21] MEDS: *HR* OxyCODONE Immed Rel 5 MG TABLET PO PRN ×3 (06:26→18:18)
[2021-02-21 06:29] LABS: Calcium 8.5 mg/dL (8.6-10.3); Potassium 4.1 mEq/L (3.5-5.1)
[2021-02-21] MEDS: Ringers Solution, Lactated 1,000 ML IVC SCH ×2 (08:37→17:05)
[2021-02-21 11:08] LABS: INR 6.1
[2021-02-21] MEDS: Acetaminophen 325 MG TABLET PO PRN (14:41)
[2021-02-21] MEDS ORDERED: Vancomycin 2,000 MG/520 ML IV.SOLN IVPB SCH (16:00)
[2021-02-21] MEDS ORDERED: Warfarin perPT PO PRN (18:00)
[2021-02-22] MEDS: Ringers Solution, Lactated 1,000 ML IVC SCH (00:53)
[2021-02-22 06:30] LABS: INR 3.6; Prothrombin Time 40.1 Seconds (9.4-12.1)
[2021-02-22 06:36] LABS: Hematocrit 33.5 % (37.5-50.1); Hemoglobin 10.6 g/dL (12.9-16.9); Mean Corpuscular HGB Conc 31.6 g/dL (31.6-35.5); Mean Corpuscular Hemoglobin 27.4 pg (28.0-33.3); Mean Corpuscular Volume 86.6 fL (83.0-100.0); Mean Platelet Volume 9.7 fL (9.4-12.4); Platelet Count 377 K/mcL (140-400); Red Blood Count 3.87 M/mcL (4.19-5.50); Red Cell Distribution Width 15.5 % (11.5-14.5); White Blood Count 11.3 K/mcL (4.3-11.1)
[2021-02-22 06:54] LABS: BUN/Creatinine Ratio 34 (6-26); Blood Urea Nitrogen 44 mg/dL (8-23); Calcium 8.2 mg/dL (8.6-10.3); Carbon Dioxide 22 mEq/L (23-29); Chloride 109 mEq/L (98-107); Glucose 92 mg/dL (70-105); Osmolality,Calculated 299 (280-300); Potassium 4.3 mEq/L (3.5-5.1); Sodium 139 mEq/L (136-145); eGFR For African Americans > 60 (> 60); eGFR For Non-African Americans 54 (> 60)
[2021-02-22] MEDS: amLODIPine 5 MG TABLET PO SCH (09:48)
[2021-02-22] MEDS: *HR* OxyCODONE Immed Rel 5 MG TABLET PO PRN ×2 (09:48→22:05)
[2021-02-22] MEDS: hydrALAZINE 25 MG TABLET PO SCH ×3 (09:48→22:06)
[2021-02-22] MEDS: Sennosides/Docusate Sodium TABLET PO SCH ×2 (10:50→22:05)
[2021-02-22] MEDS: Acetaminophen 325 MG TABLET PO PRN (16:07)
[2021-02-22] MEDS: Vancomycin 2,000 MG/520 ML IV.SOLN IVPB SCH (16:07)
[2021-02-22] MEDS: carvediloL 25 MG TABLET PO SCH (16:07)
[2021-02-22] MEDS: levoFLOXacin 750 MG/150 ML 750 MG/150 ML BAG IVPB SCH (18:27)
[2021-02-23 06:52] LABS: Hematocrit 33.5 % (37.5-50.1); Hemoglobin 10.5 g/dL (12.9-16.9); Mean Corpuscular HGB Conc 31.3 g/dL (31.6-35.5); Mean Corpuscular Hemoglobin 27.5 pg (28.0-33.3); Mean Corpuscular Volume 87.7 fL (83.0-100.0); Mean Platelet Volume 9.6 fL (9.4-12.4); Platelet Count 361 K/mcL (140-400); Red Blood Count 3.82 M/mcL (4.19-5.50); Red Cell Distribution Width 15.5 % (11.5-14.5); White Blood Count 9.8 K/mcL (4.3-11.1)
[2021-02-23 07:01] LABS: Prothrombin Time 22.2 Seconds (9.4-12.1)
[2021-02-23 07:03] LABS: BUN/Creatinine Ratio 29 (6-26); Blood Urea Nitrogen 29 mg/dL (8-23); Calcium 8.5 mg/dL (8.6-10.3); Carbon Dioxide 24 mEq/L (23-29); Chloride 109 mEq/L (98-107); Glucose 94 mg/dL (70-105); Osmolality,Calculated 294 (280-300); Potassium 4.5 mEq/L (3.5-5.1); Sodium 139 mEq/L (136-145); eGFR For African Americans > 60 (> 60); eGFR For Non-African Americans > 60 (> 60)
[2021-02-23] MEDS: carvediloL 25 MG TABLET PO SCH ×2 (09:18→17:01)
[2021-02-23] MEDS: hydrALAZINE 25 MG TABLET PO SCH ×3 (09:18→20:50)
[2021-02-23] MEDS: Acetaminophen 325 MG TABLET PO PRN (09:18)
[2021-02-23] MEDS: Sennosides/Docusate Sodium TABLET PO SCH ×2 (09:18→20:50)
[2021-02-23] MEDS: amLODIPine 5 MG TABLET PO SCH (09:19)
[2021-02-23] MEDS: *HR* OxyCODONE Immed Rel 5 MG TABLET PO PRN (13:06)
[2021-02-23] MEDS: Vancomycin 2,000 MG/520 ML IV.SOLN IVPB SCH (17:01)
[2021-02-24 01:09] LABS: INR 1.6
[2021-02-24] MEDS: Sennosides/Docusate Sodium TABLET PO SCH ×2 (07:26→20:28)
[2021-02-24] MEDS: carvediloL 25 MG TABLET PO SCH ×2 (07:26→16:55)
[2021-02-24] MEDS: hydrALAZINE 25 MG TABLET PO SCH ×3 (07:26→20:28)
[2021-02-24] MEDS: amLODIPine 5 MG TABLET PO SCH (07:27)
[2021-02-24] MEDS: *HR* OxyCODONE Immed Rel 5 MG TABLET PO PRN ×2 (07:30→20:28)
[2021-02-24] MEDS: levoFLOXacin 750 MG TABLET PO SCH (09:05)
[2021-02-24] MEDS ORDERED: *HR* Warfarin 2.5 MG TABLET PO ONE (18:00)
[2021-02-25] MEDS: *HR* OxyCODONE Immed Rel 5 MG TABLET PO PRN ×2 (01:46→15:40)
[2021-02-25 02:35] LABS: INR 1.6; Prothrombin Time 17.5 Seconds (9.4-12.1)
[2021-02-25 07:19] VITALS: BP 159/92; PULSE 95; TEMP 97.9; O2SAT 96
[2021-02-25] MEDS: levoFLOXacin 750 MG TABLET PO SCH (07:28)
[2021-02-25] MEDS: carvediloL 25 MG TABLET PO SCH ×2 (07:28→15:40)
[2021-02-25] MEDS: hydrALAZINE 25 MG TABLET PO SCH ×2 (07:28→15:40)
[2021-02-25] MEDS: Sennosides/Docusate Sodium TABLET PO SCH (07:29)
[2021-02-25] MEDS ORDERED: amLODIPine 5 MG TABLET PO SCH (09:00)
[2021-02-25 14:04] LABS: Adenovirus Not Detected (Not Detect); Bordetella Pertussis Not Detected (Not Detect); Chlamydophila pneumoniae Not Detected (Not Detect); Coronavirus 229E Not Detected (Not Detect); Coronavirus HKU1 Not Detected (Not Detect); Coronavirus NL63 Not Detected (Not Detect); Coronavirus OC43 Not Detected (Not Detect); Human Metapneumovirus Not Detected (Not Detect); Human Rhinovirus/Enterovirus Not Detected (Not Detect); Influenza A Subtype 2009 H1 Not Detected (Not Detect); Influenza B Not Detected (Not Detect); Mycoplasma pneumoniae Not Detected (Not Detect); Parainfluenza Virus 1 Not Detected (Not Detect); Parainfluenza Virus 2 Not Detected (Not Detect); Parainfluenza Virus 3 Not Detected (Not Detect); Parainfluenza Virus 4 Not Detected (Not Detect); Respiratory Syncytial Virus Not Detected (Not Detect); SARS-CoV-2 Not Detected (Not Detect)
[2021-02-25] MEDS ORDERED: *HR* Warfarin 5 MG TABLET PO ONE (18:00)
== END 2021-02-25 16:15 | DRG 871 ==
LOC: 3ANU 15:32 → EMEROOARM 15:32 → SUATTDRO 18:51 → 3ANU 19:30
PROVIDERS: ADMIT Pharmacist; ATTEND Internal Medicine

== ENCOUNTER 2021-09-06 17:19 | Inpatient (IN) ==
[2021-09-06 17:56] LABS: Basophils % 0.2 %; Hematocrit 32.8 % (37.5-50.1); Hemoglobin 10.6 g/dL (12.9-16.9); Immature Granulocytes % 0.4 % (0-4); Lymphocytes # 0.8 K/mcL (0.6-4.6); Lymphocytes % 5.8 %; Mean Corpuscular HGB Conc 32.3 g/dL (31.6-35.5); Mean Corpuscular Hemoglobin 25.9 pg (28.0-33.3); Mean Platelet Volume 9.5 fL (9.4-12.4); Monocytes % 7.6 %; Neutrophils # 11.6 K/mcL (1.6-8.9); Platelet Count 265 K/mcL (140-400); Red Cell Distribution Width 17.7 % (11.5-14.5); White Blood Count 13.5 K/mcL (4.3-11.1)
[2021-09-06 18:05] LABS: INR 1.7; Prothrombin Time 18.6 Seconds (9.4-12.1)
[2021-09-06 18:15] LABS: BUN/Creatinine Ratio 18 (6-26); Blood Urea Nitrogen 14 mg/dL (8-23); Calcium 9.4 mg/dL (8.6-10.3); Carbon Dioxide 25 mEq/L (23-29); Chloride 106 mEq/L (98-107); Glucose 102 mg/dL (70-105); Osmolality,Calculated 291 (280-300); Potassium 3.6 mEq/L (3.5-5.1); Sodium 140 mEq/L (136-145); eGFR For African Americans > 60 (> 60); eGFR For Non-African Americans > 60 (> 60)
[2021-09-06] MEDS ORDERED: Ondansetron 4 MG/2 ML VIAL IVP PRN (21:42)
[2021-09-06] MEDS ORDERED: Naloxone 0.4 MG/ML INJ IVP PRN (21:42)
[2021-09-06] MEDS ORDERED: Furosemide 20 MG/2 ML VIAL IVP ONE (22:00)
[2021-09-07 00:42] LABS: Hematocrit 32.9 % (37.5-50.1); Hemoglobin 10.5 g/dL (12.9-16.9); Mean Corpuscular HGB Conc 31.9 g/dL (31.6-35.5); Mean Corpuscular Hemoglobin 25.5 pg (28.0-33.3); Mean Platelet Volume 9.2 fL (9.4-12.4); Platelet Count 251 K/mcL (140-400); Red Blood Count 4.11 M/mcL (4.19-5.50); Red Cell Distribution Width 17.7 % (11.5-14.5); White Blood Count 13.9 K/mcL (4.3-11.1)
[2021-09-07 00:53] LABS: INR 1.7; Prothrombin Time 18.5 Seconds (9.4-12.1)
[2021-09-07 00:56] LABS: Activated Partial Thrombo Time 30.2 Seconds (26.0-36.0)
[2021-09-07] MEDS ORDERED: cefTRIAXone 1,000 MG in 0.9 % Sodium Chloride 10 ML IVP SCH (01:00)
[2021-09-07 01:06] LABS: % Iron Saturation 5 % (20-55); Iron 15 mcg/dL (65-175); Transferrin 211 mg/dL (203-362)
[2021-09-07 01:22] LABS: BUN/Creatinine Ratio 19 (6-26); Blood Urea Nitrogen 14 mg/dL (8-23); Calcium 9.3 mg/dL (8.6-10.3); Chloride 108 mEq/L (98-107); Chol/HDL Ratio 4.2 (0-4.9); Cholesterol 96 mg/dL (< 200); Ferritin 142 ng/mL (20-250); Glucose 98 mg/dL (70-105); HDL Cholesterol 23 mg/dL (40-59); LDL Cholesterol,Calculated 61 mg/dL (< 100); Magnesium 1.7 mg/dL (1.6-2.6); Osmolality,Calculated 294 (280-300); Potassium 3.4 mEq/L (3.5-5.1); Sodium 142 mEq/L (136-145); Triglycerides 62 mg/dL (< 150); Troponin I 0.03 ng/mL (< 0.04); eGFR For African Americans > 60 (> 60); eGFR For Non-African Americans > 60 (> 60)
[2021-09-07 01:27] LABS: Folate 11.7 ng/mL (3.0-16.0)
[2021-09-07 01:41] LABS: Carbon Dioxide 24 mEq/L (23-29)
[2021-09-07] MEDS ORDERED: *HR* Heparin 5,000 UNIT/ML VIAL IVP PRN (01:49)
[2021-09-07] MEDS ORDERED: *HR* Heparin 5,000 UNIT/ML VIAL IVP ONE (01:49)
[2021-09-07] MEDS: Heparin 25,000UNIT/250ML 1/2NS 25,000 UNIT/250 ML IV.SOLN IVC SCH ×2 (02:31→18:28)
[2021-09-07 02:33] LABS: Estimated Average Glucose 108 mg/dl; Hemoglobin A1C 5.4 %
[2021-09-07] MEDS ORDERED: Iopamidol - 370 500 ML MLS IVP ONE (07:45)
[2021-09-07] MEDS ORDERED: Perflutren Lipid Microsphere 1.3 ML in 0.9 % Sodium Chloride 8.7 ML IVP PRN (09:30)
[2021-09-07] MEDS ORDERED: Vancomycin 2,000 MG/520 ML IV.SOLN IVPB ONE (10:00)
[2021-09-07] MEDS ORDERED: Vancomycin 1,500 MG/265 ML IV.SOLN IVPB SCH (10:00)
[2021-09-07] MEDS: Furosemide 40 MG/4 ML VIAL IVP SCH (13:56)
[2021-09-07] MEDS: Cefepime HCl 1,000 MG in 0.9 % Sodium Chloride Mini Bag 100 ML IVPB SCH ×2 (15:26→23:54)
[2021-09-07] MEDS: *HR* Heparin 5,000 UNIT/ML VIAL IVP PRN ×2 (15:27→21:38)
[2021-09-07] MEDS ORDERED: carvediloL 25 MG TABLET PO SCH (17:00)
[2021-09-07] MEDS ORDERED: *HR* Metoprolol 5 MG/5 ML VIAL IVP ONE (18:17)
[2021-09-07] MEDS: Vancomycin 2,000 MG/520 ML IV.SOLN IVPB SCH (23:55)
[2021-09-08 04:56] LABS: Hematocrit 32.6 % (37.5-50.1); Hemoglobin 10.2 g/dL (12.9-16.9); Mean Corpuscular HGB Conc 31.3 g/dL (31.6-35.5); Mean Corpuscular Hemoglobin 25.4 pg (28.0-33.3); Mean Corpuscular Volume 81.1 fL (83.0-100.0); Mean Platelet Volume 10.2 fL (9.4-12.4); Platelet Count 272 K/mcL (140-400); Red Blood Count 4.02 M/mcL (4.19-5.50); Red Cell Distribution Width 17.9 % (11.5-14.5); White Blood Count 14.3 K/mcL (4.3-11.1)
[2021-09-08 05:08] LABS: BUN/Creatinine Ratio 23 (6-26); Blood Urea Nitrogen 21 mg/dL (8-23); Calcium 8.7 mg/dL (8.6-10.3); Carbon Dioxide 26 mEq/L (23-29); Chloride 108 mEq/L (98-107); Chol/HDL Ratio 4.8 (0-4.9); Cholesterol 87 mg/dL (< 200); Glucose 117 mg/dL (70-105); HDL Cholesterol 18 mg/dL (40-59); LDL Cholesterol,Calculated 54 mg/dL (< 100); Osmolality,Calculated 298 (280-300); Potassium 3.1 mEq/L (3.5-5.1); Sodium 142 mEq/L (136-145); Triglycerides 76 mg/dL (< 150); eGFR For African Americans > 60 (> 60); eGFR For Non-African Americans > 60 (> 60)
[2021-09-08] MEDS: *HR* Heparin 5,000 UNIT/ML VIAL IVP PRN (05:17)
[2021-09-08] MEDS: Furosemide 40 MG/4 ML VIAL IVP SCH ×2 (07:54→17:11)
[2021-09-08] MEDS: Cefepime HCl 1,000 MG in 0.9 % Sodium Chloride Mini Bag 100 ML IVPB SCH ×2 (07:54→16:11)
[2021-09-08] MEDS: Aspirin 81 MG TAB.CHEW PO SCH (07:54)
[2021-09-08] MEDS: Heparin 25,000UNIT/250ML 1/2NS 25,000 UNIT/250 ML IV.SOLN IVC SCH ×2 (07:57→16:10)
[2021-09-08] MEDS ORDERED: hydrALAZINE 25 MG TABLET PO SCH (08:45)
[2021-09-08] MEDS ORDERED: ALFUZOSIN HCL 10 MG PO SCH (09:00)
[2021-09-08] MEDS ORDERED: lisinopriL 20 MG TABLET PO SCH (09:00)
[2021-09-08] MEDS: amLODIPine 5 MG TABLET PO SCH (11:24)
[2021-09-08] MEDS: hydrALAZINE 25 MG TABLET PO SCH (16:10)
[2021-09-08] MEDS: *HR* Rivaroxaban 15 MG TABLET PO SCH (16:10)
[2021-09-08] MEDS: carvediloL 25 MG TABLET PO SCH (16:10)
[2021-09-09] MEDS: Cefepime HCl 1,000 MG in 0.9 % Sodium Chloride Mini Bag 100 ML IVPB SCH ×2 (00:08→11:01)
[2021-09-09] MEDS: Vancomycin 2,000 MG/520 ML IV.SOLN IVPB SCH ×3 (00:09→23:14)
[2021-09-09] MEDS ORDERED: *HR* Metoprolol 5 MG/5 ML VIAL IVP ONE (01:30)
[2021-09-09 05:24] LABS: Basophils % 0.2 %; Eosinophils # 0.2 K/mcL (0.0-0.6); Eosinophils % 1.5 %; Hematocrit 34.2 % (37.5-50.1); Hemoglobin 10.6 g/dL (12.9-16.9); Immature Granulocytes % 0.6 % (0-4); Lymphocytes # 0.7 K/mcL (0.6-4.6); Lymphocytes % 4.9 %; Mean Corpuscular Hemoglobin 24.8 pg (28.0-33.3); Mean Corpuscular Volume 79.9 fL (83.0-100.0); Mean Platelet Volume 9.6 fL (9.4-12.4); Monocytes # 0.9 K/mcL (0.0-1.3); Monocytes % 6.7 %; Platelet Count 279 K/mcL (140-400); Red Blood Count 4.28 M/mcL (4.19-5.50); Red Cell Distribution Width 17.7 % (11.5-14.5); Segmented Neutrophils % 86.1 %
[2021-09-09 05:42] LABS: BUN/Creatinine Ratio 25 (6-26); Blood Urea Nitrogen 24 mg/dL (8-23); Calcium 8.7 mg/dL (8.6-10.3); Carbon Dioxide 28 mEq/L (23-29); Chloride 106 mEq/L (98-107); Glucose 123 mg/dL (70-105); Magnesium 1.8 mg/dL (1.6-2.6); Osmolality,Calculated 301 (280-300); Phosphorous 3.7 mg/dL (2.7-4.5); Potassium 2.9 mEq/L (3.5-5.1); Sodium 143 mEq/L (136-145); eGFR For African Americans > 60 (> 60); eGFR For Non-African Americans > 60 (> 60)
[2021-09-09] MEDS: Furosemide 40 MG/4 ML VIAL IVP SCH (05:46)
[2021-09-09] MEDS ORDERED: Potassium Chloride Elixir 20 MEQ/15 ML UDC PO ONE (05:48)
[2021-09-09] MEDS: amLODIPine 5 MG TABLET PO SCH (10:59)
[2021-09-09] MEDS: Aspirin 81 MG TAB.CHEW PO SCH (11:00)
[2021-09-09] MEDS: carvediloL 25 MG TABLET PO SCH ×2 (11:00→18:00)
[2021-09-09] MEDS: *HR* Rivaroxaban 15 MG TABLET PO SCH ×2 (11:00→18:01)
[2021-09-09] MEDS: lisinopriL 20 MG TABLET PO SCH (11:00)
[2021-09-09] MEDS: hydrALAZINE 25 MG TABLET PO SCH ×3 (11:01→18:01)
[2021-09-09] MEDS ORDERED: 0.9 % Sodium Chloride 1,000 ML ONE (11:58)
[2021-09-09] MEDS: Furosemide 40 MG TABLET PO SCH (18:00)
[2021-09-09] MEDS: Cefepime HCl 2,000 MG in 0.9 % Sodium Chloride 10 ML IVP SCH (20:22)
[2021-09-10 03:55] LABS: Basophils % 0.3 %; Eosinophils # 0.4 K/mcL (0.0-0.6); Eosinophils % 3.2 %; Hematocrit 36.5 % (37.5-50.1); Hemoglobin 11.1 g/dL (12.9-16.9); Immature Granulocytes % 0.5 % (0-4); Lymphocytes # 0.7 K/mcL (0.6-4.6); Lymphocytes % 6.1 %; Mean Corpuscular HGB Conc 30.4 g/dL (31.6-35.5); Mean Corpuscular Hemoglobin 25.5 pg (28.0-33.3); Mean Corpuscular Volume 83.7 fL (83.0-100.0); Mean Platelet Volume 11.1 fL (9.4-12.4); Monocytes # 0.9 K/mcL (0.0-1.3); Monocytes % 7.8 %; Neutrophils # 9.4 K/mcL (1.6-8.9); Platelet Count 202 K/mcL (140-400); Red Blood Count 4.36 M/mcL (4.19-5.50); Red Cell Distribution Width 18.1 % (11.5-14.5); Segmented Neutrophils % 82.1 %; White Blood Count 11.4 K/mcL (4.3-11.1)
[2021-09-10] MEDS: Cefepime HCl 2,000 MG in 0.9 % Sodium Chloride 10 ML IVP SCH (04:25)
[2021-09-10 04:26] LABS: BUN/Creatinine Ratio 26 (6-26); Blood Urea Nitrogen 25 mg/dL (8-23); Calcium 8.9 mg/dL (8.6-10.3); Carbon Dioxide 21 mEq/L (23-29); Chloride 106 mEq/L (98-107); Glucose 105 mg/dL (70-105); Magnesium 1.7 mg/dL (1.6-2.6); Osmolality,Calculated 297 (280-300); Phosphorous 3.4 mg/dL (2.7-4.5); Potassium 3.3 mEq/L (3.5-5.1); Sodium 141 mEq/L (136-145); eGFR For African Americans > 60 (> 60); eGFR For Non-African Americans > 60 (> 60)
[2021-09-10] MEDS: lisinopriL 20 MG TABLET PO SCH (08:45)
[2021-09-10] MEDS: Aspirin 81 MG TAB.CHEW PO SCH (08:46)
[2021-09-10] MEDS: *HR* Rivaroxaban 15 MG TABLET PO SCH ×2 (08:46→17:32)
[2021-09-10] MEDS: carvediloL 25 MG TABLET PO SCH ×2 (08:46→17:32)
[2021-09-10] MEDS: hydrALAZINE 25 MG TABLET PO SCH ×3 (08:46→17:32)
[2021-09-10] MEDS: amLODIPine 5 MG TABLET PO SCH (08:46)
[2021-09-10] MEDS: Furosemide 40 MG TABLET PO SCH ×2 (08:47→17:32)
[2021-09-10] MEDS: Meropenem 1,000 MG in 0.9 % Sodium Chloride 10 ML IVP SCH ×2 (10:10→15:51)
[2021-09-11] MEDS: Meropenem 1,000 MG in 0.9 % Sodium Chloride 10 ML IVP SCH (00:47)
[2021-09-11 02:46] LABS: Basophils % 0.3 %; Eosinophils # 0.4 K/mcL (0.0-0.6); Hematocrit 32.1 % (37.5-50.1); Hemoglobin 10.3 g/dL (12.9-16.9); Immature Granulocytes % 0.8 % (0-4); Lymphocytes # 1.1 K/mcL (0.6-4.6); Lymphocytes % 7.9 %; Mean Corpuscular HGB Conc 32.1 g/dL (31.6-35.5); Mean Corpuscular Hemoglobin 25.1 pg (28.0-33.3); Mean Corpuscular Volume 78.3 fL (83.0-100.0); Monocytes # 1.3 K/mcL (0.0-1.3); Monocytes % 9.6 %; Neutrophils # 10.4 K/mcL (1.6-8.9); Platelet Count 325 K/mcL (140-400); Red Cell Distribution Width 17.5 % (11.5-14.5); Segmented Neutrophils % 78.4 %; White Blood Count 13.3 K/mcL (4.3-11.1)
[2021-09-11 03:05] LABS: BUN/Creatinine Ratio 22 (6-26); Blood Urea Nitrogen 23 mg/dL (8-23); Calcium 8.7 mg/dL (8.6-10.3); Carbon Dioxide 31 mEq/L (23-29); Chloride 103 mEq/L (98-107); Glucose 115 mg/dL (70-105); Magnesium 1.6 mg/dL (1.6-2.6); Osmolality,Calculated 299 (280-300); Phosphorous 3.4 mg/dL (2.7-4.5); Potassium 2.7 mEq/L (3.5-5.1); Sodium 142 mEq/L (136-145); eGFR For African Americans > 60 (> 60); eGFR For Non-African Americans > 60 (> 60)
[2021-09-11 07:23] VITALS: BP 146/87; PULSE 93
[2021-09-11] MEDS: Furosemide 40 MG TABLET PO SCH (09:26)
[2021-09-11] MEDS: *HR* Rivaroxaban 15 MG TABLET PO SCH (09:26)
[2021-09-11] MEDS: hydrALAZINE 25 MG TABLET PO SCH ×2 (09:27→11:54)
[2021-09-11] MEDS: Aspirin 81 MG TAB.CHEW PO SCH (09:27)
[2021-09-11] MEDS: lisinopriL 20 MG TABLET PO SCH (09:27)
[2021-09-11] MEDS: amLODIPine 5 MG TABLET PO SCH (09:27)
[2021-09-11] MEDS: carvediloL 25 MG TABLET PO SCH (09:27)
[2021-09-11 12:02] VITALS: TEMP 97.9; O2SAT 94
[2021-09-11 12:57] LABS: Influenza A PCR Negative (Negative); Influenza B PCR Negative (Negative); Resp. Syncytial Virus PCR Negative (Negative)
[2021-09-11 13:00] LABS: SARS-CoV-2 by PCR (In House) Negative (Negative)
== END 2021-09-11 16:45 | DRG 871 ==
LOC: EMEROOARM 17:19 → 3ANU 17:19 → SUATTDRO 09-07 13:29
PROVIDERS: ADMIT Internal Medicine; ATTEND Internal Medicine

== ENCOUNTER 2021-10-01 13:12 | Inpatient (IN) ==
[2021-10-01] MEDS ORDERED: Iopamidol - 370 500 ML MLS IVP ONE (13:32)
[2021-10-01 13:56] LABS: Basophils % 0.3 %; Eosinophils # 0.1 K/mcL (0.0-0.6); Hematocrit 28.1 % (37.5-50.1); Hemoglobin 8.9 g/dL (12.9-16.9); Immature Granulocytes % 0.5 % (0-4); Lymphocytes # 0.6 K/mcL (0.6-4.6); Lymphocytes % 5.1 %; Mean Corpuscular HGB Conc 31.7 g/dL (31.6-35.5); Mean Corpuscular Hemoglobin 25.3 pg (28.0-33.3); Mean Corpuscular Volume 79.8 fL (83.0-100.0); Mean Platelet Volume 9.5 fL (9.4-12.4); Monocytes # 0.8 K/mcL (0.0-1.3); Monocytes % 6.5 %; Neutrophils # 10.3 K/mcL (1.6-8.9); Platelet Count 245 K/mcL (140-400); Red Blood Count 3.52 M/mcL (4.19-5.50); Red Cell Distribution Width 17.6 % (11.5-14.5); Segmented Neutrophils % 86.6 %; White Blood Count 11.9 K/mcL (4.3-11.1)
[2021-10-01 14:05] LABS: INR 2.6; Prothrombin Time 29.3 Seconds (9.4-12.1)
[2021-10-01 14:08] LABS: Activated Partial Thrombo Time 35.1 Seconds (26.0-36.0)
[2021-10-01 14:37] LABS: Bilirubin,Urine Negative (Negative); Blood,Urine Small (Negative); Clarity,Urine Ex.Turbid (Clear); Color,Urine Orange (Yellow); Glucose,Urine (UA) Normal (Normal); Ketones,Urine Negative (Negative); Leukocyte Esterase,Urine Large (Negative); Nitrite,Urine Negative (Negative); PH,Urine 7.5 pH Units (5.0-8.0); Protein,Urine 200 mg/dL (Neg-Trace); Specific Gravity,Urine 1.009 (1.010-1.025); Urobilinogen,Urine Normal (Normal)
[2021-10-01 14:43] LABS: Bacteria,Urine Present per hpf (None-Few); RBC,Urine Present per hpf (0-3); WBC,Urine Present per hpf (0-3)
[2021-10-01 14:44] LABS: Mucus,Urine Present per lpf (None-Few)
[2021-10-01 14:52] LABS: Alanine Aminotransferase 10 Units/L (7-52); Albumin 2.7 g/dL (3.5-5.7); Albumin/Globulin Ratio 0.8 (1.1-2.2); Alkaline Phosphatase 107 Units/L (34-104); Aspartate Amino Transferase 16 Units/L (13-39); BUN/Creatinine Ratio 20 (6-26); Bilirubin,Direct 0.3 mg/dL (0.0-0.2); Bilirubin,Indirect 0.5 mg/dL (0.0-1.0); Bilirubin,Total 0.8 mg/dL (0.3-1.0); Blood Urea Nitrogen 31 mg/dL (8-23); Calcium 8.4 mg/dL (8.6-10.3); Carbon Dioxide 26 mEq/L (23-29); Chloride 105 mEq/L (98-107); Ethanol < 10 mg/dL (Less than 10); Globulin 3.3 g/dL (2.4-3.5); Glucose 97 mg/dL (70-105); Osmolality,Calculated 298 (280-300); Potassium 3.8 mEq/L (3.5-5.1); Sodium 141 mEq/L (136-145); Troponin I 0.18 ng/mL (< 0.04); eGFR For African Americans 53 (> 60); eGFR For Non-African Americans 44 (> 60)
[2021-10-01 15:05] LABS: Amphetamine Screen,Urine Negative ng/mL (Cutoff=1000); Barbiturate Screen,Urine Negative ng/mL (Cutoff=200); Benzodiazepines Screen,Urine Negative ng/mL (Cutoff=200); Cannabinoid Screen,Urine Negative ng/mL (Cutoff = 50); Cocaine Screen,Urine Negative ng/mL (Cutoff= 300); Opiate Screen,Urine Negative ng/mL (Cutoff=300); Phencyclidine Screen,Urine Negative ng/mL (Cutoff=25)
[2021-10-01] MEDS ORDERED: cefTRIAXone 2,000 MG in 0.9 % Sodium Chloride 20 ML IVP ONE (15:08)
[2021-10-01] MEDS ORDERED: 0.9 % Sodium Chloride 1,000 ML IV ONE (17:08)
[2021-10-01] MEDS ORDERED: Ondansetron 4 MG/2 ML VIAL IVP PRN (17:41)
[2021-10-01] MEDS ORDERED: Naloxone 0.4 MG/ML INJ IVP PRN (17:41)
[2021-10-01] MEDS ORDERED: Acetaminophen 325 MG TABLET PO PRN (17:41)
[2021-10-01] MEDS ORDERED: Perflutren Lipid Microsphere 1.3 ML in 0.9 % Sodium Chloride 8.7 ML IVP PRN (17:57)
[2021-10-01] MEDS ORDERED: Nitroglycerin 0.4 MG TAB.SUBL SL PRN (18:01)
[2021-10-01 18:09] LABS: Phosphorous 4.6 mg/dL (2.7-4.5)
[2021-10-01] MEDS: Pantoprazole 40 MG VIAL IVP SCH (21:29)
[2021-10-02] MEDS ORDERED: *HR* LORazepam 2 MG/ML VIAL IVP ONE ×2 (01:12→10:19)
[2021-10-02 01:40] LABS: ABG Base Excess 5 mEq/L (-2 to 3); ABG HCO3 30 mEq/L (21-27); ABG Oxygen Saturation 98 % (95-98); ABG PCO2 43 mmHg (35-45); ABG PH 7.45 pH Units (7.32-7.45); ABG PO2 109 mmHg (85-104); ABG TCO2 31 mEq/L (20-26)
[2021-10-02 02:42] LABS: Basophils % 0.4 %; Eosinophils # 0.2 K/mcL (0.0-0.6); Eosinophils % 1.5 %; Hematocrit 27.2 % (37.5-50.1); Hemoglobin 8.5 g/dL (12.9-16.9); Immature Granulocytes % 0.5 % (0-4); Lymphocytes # 0.8 K/mcL (0.6-4.6); Lymphocytes % 7.7 %; Mean Corpuscular HGB Conc 31.3 g/dL (31.6-35.5); Mean Corpuscular Hemoglobin 25.1 pg (28.0-33.3); Mean Corpuscular Volume 80.5 fL (83.0-100.0); Mean Platelet Volume 10.1 fL (9.4-12.4); Monocytes # 0.7 K/mcL (0.0-1.3); Neutrophils # 9.1 K/mcL (1.6-8.9); Platelet Count 237 K/mcL (140-400); Red Blood Count 3.38 M/mcL (4.19-5.50); Red Cell Distribution Width 17.4 % (11.5-14.5); Segmented Neutrophils % 83.9 %; White Blood Count 10.9 K/mcL (4.3-11.1)
[2021-10-02 03:02] LABS: Alanine Aminotransferase 9 Units/L (7-52); Albumin 2.4 g/dL (3.5-5.7); Albumin/Globulin Ratio 0.7 (1.1-2.2); Alkaline Phosphatase 93 Units/L (34-104); Aspartate Amino Transferase 13 Units/L (13-39); BUN/Creatinine Ratio 21 (6-26); Bilirubin,Total 0.6 mg/dL (0.3-1.0); Blood Urea Nitrogen 28 mg/dL (8-23); Calcium 8.5 mg/dL (8.6-10.3); Carbon Dioxide 28 mEq/L (23-29); Chloride 107 mEq/L (98-107); Globulin 3.4 g/dL (2.4-3.5); Glucose 86 mg/dL (70-105); Magnesium 1.8 mg/dL (1.6-2.6); Osmolality,Calculated 303 (280-300); Potassium 3.3 mEq/L (3.5-5.1); Sodium 144 mEq/L (136-145); Total Protein 5.8 g/dL (6.4-8.9); eGFR For African Americans > 60 (> 60); eGFR For Non-African Americans 51 (> 60)
[2021-10-02] MEDS: Pantoprazole 40 MG VIAL IVP SCH ×2 (06:55→17:35)
[2021-10-02] MEDS ORDERED: Hydrocortisone Acetate 25 MG RECTAL SUPPOSITORY RC PRN (11:57)
[2021-10-02] MEDS ORDERED: cefTRIAXone 1,000 MG in Water for inj. (sterile) 10 ML IVP SCH (12:00)
[2021-10-02 13:02] LABS: % Iron Saturation 7 % (20-55); Iron 13 mcg/dL (65-175); Transferrin 134 mg/dL (203-362)
[2021-10-02 13:05] LABS: Ferritin 267 ng/mL (20-250)
[2021-10-02 13:12] LABS: Folate 9.9 ng/mL (3.0-16.0)
[2021-10-02] MEDS ORDERED: Melatonin 3 MG TABLET PO ONE (22:49)
[2021-10-03] MEDS ORDERED: *HR* LORazepam 2 MG/ML VIAL IVP ONE (03:37)
[2021-10-03] MEDS: Pantoprazole 40 MG VIAL IVP SCH (06:20)
[2021-10-03] MEDS ORDERED: Cefepime HCl 2,000 MG in 0.9 % Sodium Chloride 10 ML IVP SCH (09:00)
[2021-10-03 10:10] LABS: Basophils % 0.4 %; Eosinophils # 0.5 K/mcL (0.0-0.6); Eosinophils % 6.2 %; Hematocrit 27.2 % (37.5-50.1); Hemoglobin 8.3 g/dL (12.9-16.9); Immature Granulocytes % 0.2 % (0-4); Lymphocytes % 12.7 %; Mean Corpuscular HGB Conc 30.5 g/dL (31.6-35.5); Mean Corpuscular Hemoglobin 25.3 pg (28.0-33.3); Mean Corpuscular Volume 82.9 fL (83.0-100.0); Mean Platelet Volume 9.4 fL (9.4-12.4); Monocytes # 0.6 K/mcL (0.0-1.3); Monocytes % 7.4 %; Neutrophils # 5.9 K/mcL (1.6-8.9); Platelet Count 255 K/mcL (140-400); Red Blood Count 3.28 M/mcL (4.19-5.50); Segmented Neutrophils % 73.1 %
[2021-10-03 10:28] LABS: BUN/Creatinine Ratio 22 (6-26); Blood Urea Nitrogen 21 mg/dL (8-23); Calcium 8.1 mg/dL (8.6-10.3); Carbon Dioxide 31 mEq/L (23-29); Chloride 105 mEq/L (98-107); Glucose 115 mg/dL (70-105); Osmolality,Calculated 294 (280-300); Potassium 3.6 mEq/L (3.5-5.1); Sodium 140 mEq/L (136-145); eGFR For African Americans > 60 (> 60); eGFR For Non-African Americans > 60 (> 60)
[2021-10-03] MEDS: Cyanocobalamin (B-12) 1,000 MCG TABLET PO SCH (12:13)
[2021-10-03] MEDS: Iron Sucrose Complex 200 MG in 0.9 % Sodium Chloride 100 ML IVPB SCH (12:13)
[2021-10-03] MEDS: Ertapenem 1,000 MG in 0.9 % Sodium Chloride Mini Bag 100 ML IVPB SCH (12:14)
[2021-10-04 02:51] LABS: Basophils % 0.4 %; Eosinophils # 0.5 K/mcL (0.0-0.6); Eosinophils % 7.5 %; Hematocrit 27.9 % (37.5-50.1); Hemoglobin 8.6 g/dL (12.9-16.9); Immature Granulocytes % 0.3 % (0-4); Lymphocytes # 1.1 K/mcL (0.6-4.6); Lymphocytes % 15.2 %; Mean Corpuscular HGB Conc 30.8 g/dL (31.6-35.5); Mean Corpuscular Hemoglobin 25.2 pg (28.0-33.3); Mean Corpuscular Volume 81.8 fL (83.0-100.0); Mean Platelet Volume 9.5 fL (9.4-12.4); Monocytes # 0.6 K/mcL (0.0-1.3); Monocytes % 7.9 %; Neutrophils # 4.9 K/mcL (1.6-8.9); Platelet Count 257 K/mcL (140-400); Red Blood Count 3.41 M/mcL (4.19-5.50); Red Cell Distribution Width 16.9 % (11.5-14.5); Segmented Neutrophils % 68.7 %; White Blood Count 7.2 K/mcL (4.3-11.1)
[2021-10-04 03:11] LABS: BUN/Creatinine Ratio 20 (6-26); Blood Urea Nitrogen 16 mg/dL (8-23); Calcium 8.4 mg/dL (8.6-10.3); Carbon Dioxide 30 mEq/L (23-29); Chloride 106 mEq/L (98-107); Glucose 95 mg/dL (70-105); Osmolality,Calculated 291 (280-300); Potassium 3.5 mEq/L (3.5-5.1); Sodium 140 mEq/L (136-145); eGFR For African Americans > 60 (> 60); eGFR For Non-African Americans > 60 (> 60)
[2021-10-04] MEDS: Pantoprazole 40 MG VIAL IVP SCH (08:59)
[2021-10-04] MEDS: Cyanocobalamin (B-12) 1,000 MCG TABLET PO SCH (08:59)
[2021-10-04] MEDS: Iron Sucrose Complex 200 MG in 0.9 % Sodium Chloride 100 ML IVPB SCH (09:00)
[2021-10-04] MEDS: Ertapenem 1,000 MG in 0.9 % Sodium Chloride Mini Bag 100 ML IVPB SCH (11:47)
[2021-10-04] MEDS: carvediloL 25 MG TABLET PO SCH (16:34)
[2021-10-04] MEDS: Apixaban 5 MG TABLET PO SCH (20:23)
[2021-10-05 03:36] LABS: Basophils % 0.2 %; Eosinophils # 0.5 K/mcL (0.0-0.6); Eosinophils % 6.1 %; Hematocrit 28.4 % (37.5-50.1); Hemoglobin 8.6 g/dL (12.9-16.9); Immature Granulocytes % 0.2 % (0-4); Lymphocytes % 12.7 %; Mean Corpuscular HGB Conc 30.3 g/dL (31.6-35.5); Mean Corpuscular Hemoglobin 24.9 pg (28.0-33.3); Mean Corpuscular Volume 82.1 fL (83.0-100.0); Mean Platelet Volume 9.8 fL (9.4-12.4); Monocytes # 0.7 K/mcL (0.0-1.3); Monocytes % 8.1 %; Neutrophils # 5.8 K/mcL (1.6-8.9); Platelet Count 261 K/mcL (140-400); Red Blood Count 3.46 M/mcL (4.19-5.50); Red Cell Distribution Width 16.7 % (11.5-14.5); Segmented Neutrophils % 72.7 %
[2021-10-05 03:51] LABS: BUN/Creatinine Ratio 15 (6-26); Blood Urea Nitrogen 11 mg/dL (8-23); Calcium 8.1 mg/dL (8.6-10.3); Carbon Dioxide 32 mEq/L (23-29); Chloride 105 mEq/L (98-107); Glucose 96 mg/dL (70-105); Osmolality,Calculated 289 (280-300); Potassium 3.6 mEq/L (3.5-5.1); Sodium 140 mEq/L (136-145); eGFR For African Americans > 60 (> 60); eGFR For Non-African Americans > 60 (> 60)
[2021-10-05] MEDS: Aspirin Enteric Coated 81 MG Tablet PO SCH (08:10)
[2021-10-05] MEDS: Apixaban 5 MG TABLET PO SCH ×2 (08:10→20:35)
[2021-10-05] MEDS: Cyanocobalamin (B-12) 1,000 MCG TABLET PO SCH (08:10)
[2021-10-05] MEDS: carvediloL 25 MG TABLET PO SCH ×2 (08:10→16:15)
[2021-10-05] MEDS: Iron Sucrose Complex 200 MG in 0.9 % Sodium Chloride 100 ML IVPB SCH (08:10)
[2021-10-05] MEDS: Pantoprazole 40 MG VIAL IVP SCH (08:11)
[2021-10-05] MEDS: Folic Acid 1 MG TABLET PO SCH (09:53)
[2021-10-05] MEDS: Furosemide 20 MG TABLET PO SCH (09:53)
[2021-10-05] MEDS: Ertapenem 1,000 MG in 0.9 % Sodium Chloride Mini Bag 100 ML IVPB SCH (11:49)
[2021-10-06 03:15] LABS: Basophils % 0.5 %; Eosinophils # 0.4 K/mcL (0.0-0.6); Eosinophils % 4.8 %; Hematocrit 29.6 % (37.5-50.1); Immature Granulocytes % 0.5 % (0-4); Lymphocytes # 1.1 K/mcL (0.6-4.6); Mean Corpuscular HGB Conc 30.4 g/dL (31.6-35.5); Mean Corpuscular Hemoglobin 24.7 pg (28.0-33.3); Mean Corpuscular Volume 81.3 fL (83.0-100.0); Monocytes # 0.6 K/mcL (0.0-1.3); Monocytes % 7.7 %; Neutrophils # 5.7 K/mcL (1.6-8.9); Platelet Count 272 K/mcL (140-400); Red Blood Count 3.64 M/mcL (4.19-5.50); Red Cell Distribution Width 16.2 % (11.5-14.5); Segmented Neutrophils % 72.5 %; White Blood Count 7.9 K/mcL (4.3-11.1)
[2021-10-06 03:35] LABS: BUN/Creatinine Ratio 13 (6-26); Blood Urea Nitrogen 8 mg/dL (8-23); Calcium 8.5 mg/dL (8.6-10.3); Carbon Dioxide 30 mEq/L (23-29); Chloride 103 mEq/L (98-107); Glucose 92 mg/dL (70-105); Osmolality,Calculated 284 (280-300); Potassium 3.6 mEq/L (3.5-5.1); Sodium 138 mEq/L (136-145); eGFR For African Americans > 60 (> 60); eGFR For Non-African Americans > 60 (> 60)
[2021-10-06] MEDS: Famotidine 20 MG TABLET PO SCH (08:44)
[2021-10-06] MEDS: Folic Acid 1 MG TABLET PO SCH (08:44)
[2021-10-06] MEDS: carvediloL 25 MG TABLET PO SCH ×2 (08:44→16:40)
[2021-10-06] MEDS: Apixaban 5 MG TABLET PO SCH ×2 (08:45→20:35)
[2021-10-06] MEDS: Furosemide 20 MG TABLET PO SCH (08:45)
[2021-10-06] MEDS: Cyanocobalamin (B-12) 1,000 MCG TABLET PO SCH (08:45)
[2021-10-06] MEDS: Aspirin Enteric Coated 81 MG Tablet PO SCH (08:45)
[2021-10-06] MEDS: Ertapenem 1,000 MG in 0.9 % Sodium Chloride Mini Bag 100 ML IVPB SCH (11:31)
[2021-10-07] MEDS: carvediloL 25 MG TABLET PO SCH ×2 (07:53→16:26)
[2021-10-07] MEDS: Furosemide 20 MG TABLET PO SCH (07:53)
[2021-10-07] MEDS: Aspirin Enteric Coated 81 MG Tablet PO SCH (07:53)
[2021-10-07] MEDS: Cyanocobalamin (B-12) 1,000 MCG TABLET PO SCH (07:53)
[2021-10-07] MEDS: Famotidine 20 MG TABLET PO SCH (07:53)
[2021-10-07] MEDS: Apixaban 5 MG TABLET PO SCH (07:53)
[2021-10-07] MEDS: Folic Acid 1 MG TABLET PO SCH (07:53)
[2021-10-07] MEDS: Ertapenem 1,000 MG in 0.9 % Sodium Chloride Mini Bag 100 ML IVPB SCH (11:19)
[2021-10-07 18:52] VITALS: BP 149/84; PULSE 80; TEMP 99.2; O2SAT 95
== END 2021-10-07 20:30 | DRG 871 ==
LOC: EMEROOARM 13:12 → 2ANU 13:12 → SUATTDRO 17:42 → 2ANU 18:30
PROVIDERS: ADMIT Family Medicine; ATTEND General Practice